=== PATIENT | female | born 1970 | race Caucasian/White ===

== ENCOUNTER 2020-01-01 12:27 | Emergency (ER) | payer MEDICAID ==
[~2020-01-01] VITALS: Ht 162.6 cm; Wt 87.5 kg
[~2020-01-01 12:27] MED LIST: NORCO1 TA2 PO
[2020-01-01 12:37] VITALS: Ht 162.6 cm; Wt 87.5 kg
[2020-01-01 15:16] VITALS: BP 142/82
== END 2020-01-01 15:16 | disposition home or self-care (01) ==
LOC: ED 12:27
DX: R51 Headache (principal); H93.13 Tinnitus, bilateral; Z98.890 Other specified postprocedural states
CPT/HCPCS: J1885; J8597